=== PATIENT | female | born 1955 | race Caucasian/White ===

== ENCOUNTER → 2020-05-30 11:23 | Outpatient (BNVA) | payer MEDICARE, OTHER, SELFPAY | PROVIDERS: Visit Provider Nurse Practitioner Family | DX: Z20.828 Contact with and (suspected) exposure to other viral communicable diseases (principal) | CPT/HCPCS: 87635 ==

== ENCOUNTER → 2021-02-23 10:06 | Outpatient (BNVA) | payer MEDICARE, OTHER, SELFPAY | PROVIDERS: PCP Nurse Practitioner Family; Visit Provider Nurse Practitioner Family | DX: E11.9 Type 2 diabetes mellitus without complications (principal); J30.89 Other allergic rhinitis; B07.9 Viral wart, unspecified; Z12.31 Encounter for screening mammogram for malignant neoplasm of breast; Z23 Encounter for immunization; Z12.39 Encounter for other screening for malignant neoplasm of breast; Z12.11 Encounter for screening for malignant neoplasm of colon; Z76.89 Persons encountering health services in other specified circumstances | CPT/HCPCS: 80053; 80061; 83036; 85025 ==

== ENCOUNTER 2021-04-19 11:53 | Outpatient (CLI) | payer MEDICARE, OTHER, SELFPAY ==
--- NOTE | 2021-04-19 12:00 | MM_ITS ---
WS: [id number] SCREENING DIGITAL MAMMOGRAM WITH CAD HISTORY: Z12.39 - Encounter for other screening for malignant neoplasm... COMPARISON: 08/06/2016 and 05/17/2014 Bilateral CC and MLO views submitted. Computer aided detection analyzed. Breast composition: The breasts are heterogeneously dense, which may obscure small masses. Focal asym metry seen along the inferior RIGHT breast on the MLO projection. Tubular structure with a few calcif ications. This may be a vessel or duct. Not definitely seen on the CC projection. Otherwise scattered benign calcifications. MM/[place] [id number] IMPRESSION: BI-RADS: 0-Incomplete: Need additional imaging evaluation FOLLOW UP: Need Additional Imaging RIGHT breast: Spot compression views ( MLO). True ML. Ultrasound to follow if a bnormality persists.
== END 2021-04-19 11:54 | disposition home or self-care (01) ==
LOC: RADSHAW 11:59
PROVIDERS: PCP Nurse Practitioner Family; Visit Provider Nurse Practitioner Family
DX: Z12.31 Encounter for screening mammogram for malignant neoplasm of breast (principal)
CPT/HCPCS: 77067

== ENCOUNTER → 2021-04-24 09:55 | Outpatient (BNVA) | payer MEDICARE, OTHER, SELFPAY | PROVIDERS: PCP Nurse Practitioner Family; Visit Provider Surgery | DX: Z20.822 Contact with and (suspected) exposure to COVID-19 (principal); Z11.52 Encounter for screening for COVID-19 | CPT/HCPCS: 87635 ==

== ENCOUNTER 2021-04-27 06:17 | Day surgery (SDC) | payer MEDICARE, OTHER, SELFPAY ==
[2021-04-26 09:32] VITALS: BMI 34.3
[2021-04-27 06:29] VITALS: BP 119/64; PULSE 64; RESP 18; TEMP 36.1; O2SAT 98
[2021-04-27] MEDS: sodium chloride 0.9% 1,000 ML 30 ML IV (06:30)
--- NOTE | 2021-04-27 07:36 | ANES.PREANE2 ---
Pre-Anesthetic Assessment Pre-Anesthetic Assessment: Height/Weight: Height 1.63 m Weight 90.718 kg Temp Pulse Resp BP Pulse Ox 97 F L 64 18 119/64 98 04/27/21 06:29 04/27/21 06:29 04/27/21 06:29 04/27/21 06:29 04/27/21 06:29 Preop Diagnosis: diagnostic Proposed Procedure: Operation Date: 04/27/21 07:30 Proposed Procedures p Colonoscopy 06035 K63.5(Not Applicable) - Bobby Boyd MD Was Beta Wiliam taken within 24 hours: N/A Was Clonidine taken within 24 hours: N/A Last intake: Intake Last Liquid Date 04/26/21 Last Liquid Time 21:00 Last Solid Date 04/25/21 Last Solid Time 20:00 Social: Social History: No alcohol Comment: former smoker- many years ago Exam: Pre-Anes Outpt Exam: alert and oriented x 3 Airway: Submandibular: WNL Cervical ROM: WNL MP: 3 Dentition: Full History/ROS: No significant history except as noted Pulmonary: Pulmonary: Asthma (very seldom) CV/HEM: CV/HEM: None reported : : None reported Hepatic: Hepatic: None reported GI: GI: GERD Metabolic: Metabolic: DM and Morbid obesity Musc/skel: Musc/skel: None reported Neuropsych: Neuropsych: None reported Anesthetic Plan: ASA status: 3 Anesthesia: Anesthesia Evaluation Risk of > 500 ml blood loss (7ml/kg in children): No Meds/Allergies Current Medications: Current Medications Generic Name Dose Route Start Last Admin Trade Name Freq PRN Reason Stop Dose Admin Sodium Chloride 1,000 mls @ 30 ml s/hr 04/27/21 06:30 04/27/21 06:30 Sodium Chloride 0.9% IV 04/28/21 06:29 30 mls/hr .Q24H DINORAH Administration PFSH Anesthesia PFSH: Medical History Diabetes mellitus with hyperglycemia Environmental and seasonal allergies GERD (gastroesophageal reflux disease) Surgical History History of colonoscopy History of nasal surgery History of shoulder surgery left and right Hx of breast biopsy left and right Family History Mother Diabetes Grandmother Diabetes Social History Second hand smoke exposure: No Smoking risk assessment/counseling performed?: No Alcohol intake: former Desire information about alcohol rehabilitation?: No Counseling given: No Desire information about substance/drug rehabilitation?: No Counseling given: No Adopted: No Caregiver/support person: No Lives independently: Yes Household members: spouse Housing: House Marital status: Number of children: 2 Highest education level completed: Some College, No Degree service: Yes status: Discharged branch: [employer] History of recent travel: No Data Anesthesia Cardiac Studies: No Data to Display
--- NOTE | 2021-04-27 07:37 | P.HP_ITS ---
Same Day Surgery H&P Indication for Procedure/HPI DATE OF PROCEDURE: April 27, 2021 CHIEF COMPLAINT/INDICATIONFOR SURGICAL PROCEDURE: colonoscopy PREOP DIAGNOSIS: diagnostic PLANNED PROCEDRUE: Operation Date: 04/27/21 07:30 Proposed Procedures p Colonoscopy 84128 K63.5(Not Applicable) - Bobby Boyd MD Medications/Allergies* Home Medications Medication Instructions Recorded Confirmed Type cetirizine 10 mg tablet 10 mg PO DAILY PRN 02/23/21 04/27/21 History famotidine 20 mg tablet 20 mg PO BID 02/23/21 04/27/21 History valacyclovir 1 gram tablet 1,000 mg PO ONCE PRN tab 02/23/21 04/27/21 History Allergies/Adverse Reactions Allergy/AdvReac Type Severity Reaction Status Date / Time adhesive tape Allergy ALGY-Bliste Verified 04/27/21 06:36 r Current Medications: Generic Name Dose Route Start Last Admin Trade Name Freq PRN Reason Stop Dose Admin Sodium Chloride 1,000 mls @ 30 mls/hr 04/27/21 06:30 04/27/21 06:30 Sodium Chloride 0.9% IV 04/28/21 06:29 30 mls/hr .Q24H DINORAH Administration Pertinent History/Comorbid Conditions* Medical History (Updated 03/30/21 @ 09:28 by MARCELLUS Hicks) Diabetes mellitus with hyperglycemia Environmental and seasonal allergies GERD (gastroesophageal reflux disease) Surgical History (Updated 03/10/21 @ 14:11 by Bobby Boyd MD) History of colonoscopy History of nasal surgery History of shoulder surgery left and right Hx of breast biopsy left and right Family History (Updated 02/23/21 @ 09:48 by Afsaneh Cowan LPN) Diabetes Mother Grandmother Social History Second hand smoke exposure: No Smoking risk assessment/counseling performed?: No Alcohol intake: former Desire information about alcohol rehabilitation?: No Counseling given: No Desire information about substance/drug rehabilitation?: No Counseling given: No Adopted: No Caregiver/support person: No Lives independently: Yes Household members: spouse Housing: House Marital status: Number of children: 2 Highest education level completed: Some College, No Degree service: Yes status: Discharged branch: [employer] History of recent travel: No Pertinent Exam Findings alert, oriented x 3 and regular rate & rhythm Recommendations Surgery/Procedure today Coding Level of Care Code Acute Digital Sales Manager for Chg Ruslan
[2021-04-27 08:04] VITALS: BP 117/69; PULSE 74; RESP 18; TEMP 36.9; O2SAT 94
[2021-04-27 08:19] VITALS: BP 125/69; PULSE 71; RESP 18; TEMP 36.7; O2SAT 96
--- NOTE | 2021-04-27 13:13 | ANE.PACU2 ---
Inpatient post-anesthesia follow up: Airway intact: Yes Vital signs: Temperature 98.1 F Pulse Rate 71 Respiratory Rate 18 Blood Pressure 125/69 Pulse Oximetry 96 Oxygen Delivery Me thod Room Air Oxygen Flow Rate Fraction of Inspir ed Oxygen Hydration adequate: Yes Nausea and vomiting: Yes Pain level: 1 Mental status: Baseline
== END 2021-04-27 08:30 | disposition home or self-care (01) ==
PROVIDERS: PCP Nurse Practitioner Family; Visit Provider Surgery
PROC: 0DJD8ZZ Inspection of Lower Intestinal Tract, Via Natural or Artificial Opening Endoscopic (ICD-10-PCS; CPT 45378; principal; 2021-04-27 07:30)
DX: K63.5 Polyp of colon (principal); E11.65 Type 2 diabetes mellitus with hyperglycemia; K21.9 Gastro-esophageal reflux disease without esophagitis; Z83.3 Family history of diabetes mellitus; K57.30 Diverticulosis of large intestine without perforation or abscess without bleeding; K64.8 Other hemorrhoids; J45.909 Unspecified asthma, uncomplicated; E66.01 Morbid (severe) obesity due to excess calories; Z68.34 Body mass index [BMI] 34.0-34.9, adult
CPT/HCPCS: 45378; 96360; 96361; J2704; J7030

== ENCOUNTER → 2022-03-20 11:06 | Outpatient (BNVA) | payer MEDICARE, OTHER, SELFPAY | PROVIDERS: PCP Nurse Practitioner Family; Visit Provider Nurse Practitioner | DX: J30.89 Other allergic rhinitis (principal); K21.9 Gastro-esophageal reflux disease without esophagitis; E11.65 Type 2 diabetes mellitus with hyperglycemia; Z23 Encounter for immunization; Z12.39 Encounter for other screening for malignant neoplasm of breast; R41.3 Other amnesia | CPT/HCPCS: 80053; 80061; 82043; 82607; 83036; 84443 ==

== ENCOUNTER → 2022-09-03 08:11 | Outpatient (BNVA) | payer MEDICARE, OTHER, SELFPAY | PROVIDERS: PCP Nurse Practitioner; Visit Provider Nurse Practitioner | DX: E11.65 Type 2 diabetes mellitus with hyperglycemia (principal); E78.2 Mixed hyperlipidemia | CPT/HCPCS: 80053; 80061; 82607; 83036; 84443; 85025 ==

== ENCOUNTER → 2023-04-11 09:01 | Outpatient (BNVA) | payer MEDICARE, OTHER, SELFPAY | PROVIDERS: PCP Nurse Practitioner; Visit Provider Nurse Practitioner | DX: E11.65 Type 2 diabetes mellitus with hyperglycemia (principal); E78.2 Mixed hyperlipidemia; Z79.899 Other long term (current) drug therapy | CPT/HCPCS: 80053; 80061; 82607; 83036; 85025 ==

== ENCOUNTER 2023-04-19 13:11 | Emergency (ER) | payer MEDICARE, OTHER, SELFPAY ==
[2023-04-19 14:00] VITALS: BP 113/73; PULSE 64; RESP 18; TEMP 36.7; O2SAT 98; BMI 21.4
[2023-04-19 16:02] LABS: Basophils # 0.1 10^3/uL (0.0-0.1); Basophils % 0.8 %; Eosinophils # 0.1 10^3/uL (0.0-0.8); Eosinophils % 1.3 %; Hematocrit 43.4 % (36-47); Lymphocytes # 2.7 10^3/uL (0.8-4.8); Lymphocytes % 37.3 %; Mean Corpuscular HGB Conc 32.5 g/dL (30-55); Mean Corpuscular Hemoglobin 30.8 pg (27-33); Mean Corpuscular Volume 94.8 fl (85-98); Mean Platelet Volume 9.1 fL (7.4-10.4); Monocytes # 0.5 10^3/uL (0.2-0.9); Monocytes % 6.3 %; Neutrophils # 3.87 10^3/uL (1.8-7.7); Neutrophils % 54.2 %; Nucleated Red Blood Cells % 0 %; Platelet Count 283 10^3/cmm (157-399); Red Blood Count 4.58 10^6/uL (3.85-5.65); Red Cell Distribution Width 12.9 % (12.1-15.1); White Blood Count 7.14 10^3/uL (3.29-11.43)
[2023-04-19 16:24] LABS: Albumin Level 4.4 g/dL (3.5-5.2); Chloride 106 mmol/L (98-107); Sodium 144 mmol/L (136-145)
--- NOTE | 2023-04-19 16:53 | ED_ITS ---
HPI - Back Pain/Injury General: Chief Complaint: Back Pain/Injury Stated Complaint: lower back pain, abd pain Time Seen by Provider: 04/19/23 16:53 History of Present Illness: 67-year-old female presents emergency department with complaints of left lower quadrant and left flank pain. She states it feels exactly like when she had a diverticulitis flareup and is concerned that she may be having another diverticulitis flareup. She states that on Saturday the pain started to become an 8 out of 10 and she decided to go ahead and take her 's Keflex to get her through Thanksgiving until she can come to the ER today. She denies nausea vomiting fevers chills or night sweats. She denies increased urinary frequency or dysuria. She denies hematic emesis or hematochezia. She states she does have an excessive amount of gas on a regular basis and takes Gas-X for that as well as MiraLAX for her chronic constipation. She denies fevers chills or night sweats. She states her pain at present is much better. Associated symptoms: Reports abdominal pain Review of Systems General: Reports: 10 or more systems reviewed and unremarkable except in HPI and below GI: Reports: abdominal pain; Denies: hematochezia or melena PFSH ED PFSH: Medical History Asthma Colon polyps Diabetes mellitus with hyperglycemia Diverticula of colon Environmental and seasonal allergies GERD (gastroesophageal reflux disease) Surgical History History of colonoscopy (04/27/21) diverticulosis History of nasal surgery History of shoulder surgery left and right Hx of breast biopsy left and right Family History Mother Diabetes Grandmother Diabetes Social History Smoking and tobacco/nicotine status: never used tobacco/nicotine Second hand smoke exposure: No Alcohol intake: former Adopted: No Caregiver/support person: No Lives independently: Yes Household members: spouse Housing: House Marital status: Number of children: 2 Highest education level completed: Some College, No Degree service: Yes status: Discharged branch: [employer] Physical Exam Narrative: EXAM NARRATIVE: Constitutional: the patient appears well nourished and with normal development. Vital signs reviewed as documented. No acute distress, HENMT: Normocephalic, atraumatic. Extermal ears with normal appearance without drainage. Nose without drainage, normal appearance. Mucus membranes moist. Neck is supple, No jugular venous distension, trachea is midline, no appreciable carotid bruits. No lymphadenopathy. No meningeal signs. Flexion, extension and lateral rotation is without pain. Eyes: Pupils are equal, round, reactive to light and accommodation. No scleral icterus. Extra-ocular movement are intact. Thorax is symmetrical and with equal rise and fall with respirations. Resp: Lungs are clear to auscultation. No wheezes, rales, crackles or ronchi at present. Cardio: Regular rate and rhythm. Positive S1, S2. No appreciable murmurs, rubs or gallops. GI: Abdominal exam reveals normal bowel sounds to all quadrants. No organomegaly. No obvious palpable masses noted. No hepatomegally appreciated. Soft, nontender to palpation. Extremity: Extremities are non-edematous and both femoral and pedal pulses are 2+ and equal bilaterally. Moves all extremities well, sensation in all extremities. Neuro: Alert and oriented x4, person, place, time and situation. Cranial nerves II through XII are grossly intact, there is no focal neurological deficits that I can appreciate at present. Motor strength in the upper and lower extremities are equal and bilateral 5/5. Psych: Cooperative, calm, normal thought process, appropriate judgment. Skin: No lesions, rashes. No gross abnormalities noted. Back: Symmetrical, no obvious deformity, No CVA tenderness Course Vital Signs: Vital signs: Vital Signs Temperature 98.1 F 04/19/23 14:00 Pulse Rate 64 04/19/23 14:00 Respiratory Rate 18 04/19/23 14:00 Blood Pressure 113/73 04/19/23 14:00 Pulse Oximetry 98 04/19/23 14:00 Oxygen Delivery Me thod Room Air 04/19/23 14:00 MDM - Back Pain/Injury Medical Decision Making Physical exam completed and documented, I will obtain a urinalysis as well as a CBC and CMP and a CT scan of the abdomen pelvis to rule out diverticulitis, colitis, enteritis, constipation versus excess flatus. Medical Records I reviewed the patient's medical records. Labs I reviewed the patient's lab results. 04/19/23 15:49 04/19/23 15:49 Radiology Impressions Abdomen/Pelvis CT 04/19/23 16:54 IMPRESSION: No acute findings in the abdomen or pelvis. Laboratory Results WBC 7.14 10^3/uL (3.29-11.43) 04/19/23 15:49 RBC 4.58 10^6/uL (3.85-5.65) 04/19/23 15:49 Hgb 14.10 g/dL (11.27-16.99) 04/19/23 15:49 Hct 43.4 % (36-47) 04/19/23 15:49 MCV 94.8 fl (85-98) 04/19/23 15:49 MCH 30.8 pg (27-33) 04/19/23 15:49 MCHC 32.5 g/dL (30-55) 04/19/23 15:49 RDW 12.9 % (12.1-15.1) 04/19/23 15:49 Plt Count 283 10^3/cmm (157-399) 04/19/23 15:49 MPV 9.1 fL (7.4-10.4) 04/19/23 15:49 Neut % (Auto) 54.2 % 04/19/23 15:49 Lymph % (Auto) 37.3 % 04/19/23 15:49 [place] % (Auto) 6.3 % 04/19/23 15:49 Eos % (Auto) 1.3 % 04/19/23 15:49 Baso % (Auto) 0.8 % 04/19/23 15:49 Neut # (Auto) 3.87 10^3/uL (1.8-7.7) 04/19/23 15:49 Lymph # (Auto) 2.7 10^3/uL (0.8-4.8) 04/19/23 15:49 [place] # (Auto) 0.5 10^3/uL (0.2-0.9) 04/19/23 15:49 Eos # (Auto) 0.1 10^3/uL (0.0-0.8) 04/19/23 15:49 Baso # (Auto) 0.1 10^3/uL (0.0-0.1) 04/19/23 15:49 Nucleated RBC % (auto) 0 % 04/19/23 15:49 Nucleated RBCs # 0.0 /100WBC 04/19/23 15:49 Sodium 144 mmol/L (136-145) 04/19/23 15:49 Potassium 5.0 mmol/L (3.5-5.1) 04/19/23 15:49 Chloride 106 mmol/L (98-107) 04/19/23 15:49 Carbon Dioxide 25 mmol/L (22-29) 04/19/23 15:49 Anion Gap 18.0 (5-19) 04/19/23 15:49 BUN 22 mg/dL (8-23) 04/19/23 15:49 Creatinine 0.6 mg/dL (0.5-0.9) 04/19/23 15:49 GFR Calculation 99.4 mL/min (90-130) 04/19/23 15:49 Glucose 86 mg/dL (65-115) 04/19/23 15:49 Calculated Osmolality 301 mOsm/kg (285-295) H 04/19/23 15:49 Calcium 9.7 mg/dL (8.5-10.5) 04/19/23 15:49 Total Bilirubin 0.3 mg/dL (0.15-1.2) 04/19/23 15:49 AST 23 U/L (0-32) 04/19/23 15:49 ALT 30 U/L (0-33) 04/19/23 15:49 Alkaline Phosphatase 65 U/L (35-105) 04/19/23 15:49 Total Protein 7.6 g/dL (6.6-8.7) 04/19/23 15:49 Albumin 4.4 g/dL (3.5-5.2) 04/19/23 15:49 Globulin 3.2 g/dL (1.3-4.6) 04/19/23 15:49 Lipase 74 U/L (13-60) H 04/19/23 15:49 Urine Color Yellow (Yellow) 04/19/23 17:46 Urine Appearance Clear (CLEAR) 04/19/23 17:46 Urine pH 5 (5-7) 04/19/23 17:46 Ur Specific [place] 1.007 (1.005-1.030) 04/19/23 17:46 Urine Protein Neg (Negative) 04/19/23 17:46 Urine Glucose (UA) Norm (Normal) 04/19/23 17:46 Urine Ketones Negative (Negative) 04/19/23 17:46 Urine Blood Neg (Negative) 04/19/23 17:46 Urine Nitrate Negative (Negative) 04/19/23 17:46 Urine Bilirubin Neg (Negative) 04/19/23 17:46 Urine Urobilinogen Neg mg/dL (Negative) 04/19/23 17:46 Ur Leukocyte Esterase Negative (Negative) 04/19/23 17:46 All radiology interpretation(s) finalized by discharge Discharge Plan Discharge Patient Disposition: Home Clinical Impression: Abdominal pain, Constipation Condition: Stable Prescriptions: New sennosides-docusate sodium [Senna-S] 8.6-50 mg tablet 2 tab-cap PO BID Qty: 60 0RF No Action cetirizine [Zyrtec] 10 mg tablet 10 mg PO DAILY PRN (Reason: Allergy Symptoms) omega-3 fatty acids [Fish Oil Concentrate] 1,000 mg capsule 1,000 mg PO BID Qty: 90 2RF Probiotic Digestive Care 20 billion cell capsule See Rx Instructions PO .2 times day Qty: 60 0RF Rx Instructions: 20 billion cell PO .2 times day; albuterol sulfate [Ventolin HFA] 90 mcg/actuation HFA aerosol inhaler 2 puff inhalation Q6H PRN (Reason: shortness of breath or wheezing) Qty: 8.5 1RF famotidine 20 mg tablet 20 mg PO BID Qty: 180 1RF Flovent Diskus 100 mcg/actuation blister with device 1 inh inhalation Q12H Qty: 180 1RF montelukast [Singulair] 10 mg tablet 10 mg PO DAILY Qty: 90 1RF Mounjaro 2.5 mg/0.5 mL pen injector 2.5 mg SUBCUT .weekly Qty: 6 1RF (DME) FreeStyle Lite Strips Strip See Rx Instructions .Route Qty: 100 5RF Rx Instructions: one day (DME) blood-glucose meter [FreeStyle Lite Meter] Kit See Rx Instructions .Route Qty: 1 0RF Rx Instructions: As directed valacyclovir 500 mg tablet 500 mg PO DAILY Qty: 90 0RF Discharge Orders: Discharge ED (Routine); Ordered 04/19/23 Ordered By: Franco Barnes Referrals: Marleen Rocha, BAKERY ASSOCIATE-C [Primary Care Provider] - Discharge Diet: Advance as tolerated Discharge Activity: Resume usual activity Patient Instructions: Abdominal Pain (ED), Opioid Safety, Pain Management Activity Restrictions/Additional Instructions: Activity Restrictions/Additional Instructions: Thank you for choosing [facility] for your healthcare needs today. Please realize that you were seen in the Emergency Department and that we are providing you with an emergency medical screening exam and this may not be complete and all inclusive of all the testing and or medical work-up that you may need to determine your ailment or severity of your illness. It is very important that you follow-up as instructed with your Primary care provider or Specialist for additional evaluation and to discuss your medical treatment plan. You may return to the Emergency Department should you have concerns or if your condition changes or worsens in any way. Coding Level of Care Code ED Risk Compliance Manager for Nancy Mercer
[2023-04-19 16:54] LABS: Alanine Aminotransferase 30 U/L (0-33); Aspartate Amino Transferase 23 U/L (0-32); Blood Urea Nitrogen 22 mg/dL (8-23); Calcium 9.7 mg/dL (8.5-10.5); Carbon Dioxide 25 mmol/L (22-29); Globulin 3.2 g/dL (1.3-4.6); Glomerular Filtration Rate 99.4 mL/min (90-130); Glucose 86 mg/dL (65-115); Lipase 74 U/L (13-60); Osmolality Calculated 301 mOsm/kg (285-295); Total Bilirubin 0.3 mg/dL (0.15-1.2); Total Protein 7.6 g/dL (6.6-8.7)
--- NOTE | 2023-04-19 16:54 | CTR_ITS ---
PROCEDURE INFORMATION: Exam: CT Abdomen And Pelvis With Contrast Exam date and time: 04/19/2023 5:05 PM Age: 67 years old Clinical indication: Abdominal pain; Acute; Additional info: Llq abd pain TECHNIQUE: Imaging protocol: Computed tomography of the abdomen and pelvis with contrast. Radiation optimization: All CT scans at this facility use at least one of these dose optimization techniques: automated exposure control; mA and/or kV adjustment per patient size (includes targeted exams where dose is matched to clinical indication); or iterative reconstruction. Contrast material: OMNI 350; Contrast volume: 100 ml; Contrast route: INTRAVENOUS (IV); REPORTING DATA: Count of CT and Cardiac NM exams in prior 12 months: This patient has received 0 known CTs and 0 known cardiac nuclear medicine studies in the 12 months prior to the current study. COMPARISON: CT abdomen pelvis w con* [id number] 11/06/2018 11:43 PM RADIATION DOSE METRICS: Total DLP (mGy-cm): 390.07 FINDINGS: Lungs: Lung bases are clear. Liver: There is no focal abnormality within the liver. Gallbladder and bile ducts: The gallbladder is normal. There is no common bile duct dilation. Pancreas: The pancreas is normal. Spleen: The spleen is normal. Adrenal glands: The adrenal glands are normal. Kidneys and ureters: The kidneys are normal. There is no evidence of hydronephrosis. There is no evidence of renal or ureteral calcifications. Stomach and bowel: Mild diverticulosis is present in the distal colon. There is no evidence of colitis/diverticulitis. There is no evidence of intestinal obstruction. There is a large amount of feces throughout the colon which may represent constipation. Appendix: A normal appendix is identified. Intraperitoneal space: There is no evidence of free intraperitoneal fluid. Vasculature: The aorta demonstrates mild atherosclerotic calcification. Lymph nodes: No aneurysmThere is no evidence of lymphadenopathy. Urinary bladder: Urinary bladder is moderately distended. Reproductive: Unremarkable as visualized. Bones/joints: There are degenerative changes in the lower lumbar spine with severe narrowing of L5-S1 not significantly changed. Soft tissues: There is a small benign-appearing sebaceous cyst in the subcutaneous soft tissues in the right side back. CT/CT abdomen pelvis w con* [id number] IMPRESSION: No acute findings in the abdomen or pelvis.
[2023-04-19] MEDS: iohexol 350 mg/mL 500 mL Btl (per mL) IV (17:12)
[2023-04-19 17:14] LABS: Alkaline Phosphatase 65 U/L (35-105)
[2023-04-19 18:13] LABS: Add Urine Microscopic? NO; Charge for UA Resulting for Rev
[2023-04-19 18:18] LABS: Bilirubin Urine Neg (Negative); Blood Urine Neg (Negative); Glucose Urine UA Norm (Normal); Ketones Urine Negative (Negative); Leukocyte Esterase Urine Negative (Negative); Nitrate Urine Negative (Negative); Protein Urine Neg (Negative); Specific Gravity, Urine 1.007 (1.005-1.030); Urine Appearance Clear (CLEAR); Urine Color Yellow (Yellow); Urobilinogen Urine Neg (Negative); pH Urine 5 (5-7)
== END 2023-04-19 18:44 | disposition home or self-care (01) ==
PROVIDERS: Physician Assistant; Emergency Provider Internal Medicine; PCP Nurse Practitioner
DX: K59.00 Constipation, unspecified (principal); E11.9 Type 2 diabetes mellitus without complications
CPT/HCPCS: 36415; 74177; 80053; 81003; 83690; 85025; 99285; Q9967

== ENCOUNTER 2023-05-07 14:23 | Outpatient (CLI) | payer MEDICARE, OTHER, SELFPAY ==
--- NOTE | 2023-05-07 14:30 | MM_ITS ---
WS: [id number] BILATERAL 3D TOMOSYNTHESIS DIGITAL SCREENING MAMMOGRAPHY WITH CAD CLINICAL INFORMATION: Z12.31 - Encounter for screening mammogram for malignant ... HISTORY: Screening mammogram. No current complaints. COMPARISON: 2020 TECHNIQUE: Bilateral CC and MLO views. FINDINGS: The breasts are composed of heterogeneous fibroglandular density tissue, which can limit the detectio n of small underlying mass lesions. No suspicious mass, asymmetry, calcifications, or architectural d istortion. No evidence of malignancy. Incidental punctate and lucent centered calcifications. IMPRESSION: MM/[place] [id number] BI-RADS: 2-Benign FOLLOW UP: 1 Year Follow-up Recommend return to annual screening mammography.
== END 2023-05-07 14:24 | disposition home or self-care (01) ==
LOC: MOBLMAM 14:26
PROVIDERS: PCP Nurse Practitioner; Visit Provider Nurse Practitioner
DX: Z12.31 Encounter for screening mammogram for malignant neoplasm of breast (principal)
CPT/HCPCS: 77063; 77067

== ENCOUNTER → 2023-05-08 10:11 | Outpatient (BNVA) | payer MEDICARE, OTHER, SELFPAY | PROVIDERS: PCP Nurse Practitioner; Visit Provider Nurse Practitioner | DX: M47.892 Other spondylosis, cervical region (principal); M47.896 Other spondylosis, lumbar region; M47.894 Other spondylosis, thoracic region; M54.6 Pain in thoracic spine; M54.50 Low back pain, unspecified; M54.2 Cervicalgia | CPT/HCPCS: 72040; 72072; 72100 ==

== ENCOUNTER → 2023-09-03 10:20 | Outpatient (BNVA) | payer MEDICARE, OTHER, SELFPAY | PROVIDERS: PCP Nurse Practitioner; Visit Provider Nurse Practitioner | DX: K59.01 Slow transit constipation (principal); J45.909 Unspecified asthma, uncomplicated; K21.9 Gastro-esophageal reflux disease without esophagitis; B00.9 Herpesviral infection, unspecified; E11.9 Type 2 diabetes mellitus without complications; E11.65 Type 2 diabetes mellitus with hyperglycemia | CPT/HCPCS: 74018; 80053; 80061; 81000; 83036; 85025 ==

== ENCOUNTER → 2023-09-10 09:25 | Outpatient (BNVA) | payer MEDICARE, OTHER, SELFPAY | PROVIDERS: PCP Nurse Practitioner; Visit Provider Nurse Practitioner Family | DX: R10.9 Unspecified abdominal pain (principal) | CPT/HCPCS: 82150; 83690 ==

== ENCOUNTER → 2023-11-04 10:18 | Outpatient (BNVA) | payer MEDICARE, OTHER, SELFPAY | PROVIDERS: PCP Nurse Practitioner; Visit Provider Nurse Practitioner Family | DX: E11.65 Type 2 diabetes mellitus with hyperglycemia (principal); Z91.89 Other specified personal risk factors, not elsewhere classified; K59.01 Slow transit constipation | CPT/HCPCS: 83036; 86618; 86666; 86757 ==

== ENCOUNTER → 2023-11-13 16:04 | Outpatient (BNVA) | payer MEDICARE, OTHER, SELFPAY | PROVIDERS: PCP Nurse Practitioner; Visit Provider Nurse Practitioner | DX: R10.32 Left lower quadrant pain (principal); R10.12 Left upper quadrant pain; Z79.899 Other long term (current) drug therapy | CPT/HCPCS: 80053; 81000; 82150; 83690; 85025 ==

== ENCOUNTER 2023-11-21 10:15 | Outpatient (CLI) | payer MEDICARE, OTHER, SELFPAY ==
--- NOTE | 2023-11-21 10:30 | CT_ITS ---
WS: [id number] CT ABDOMEN PELVIS TECHNIQUE: Contrast-enhanced CT of the abdomen and pelvis with coronal and sagittal reformatted image s. CLINICAL INFORMATION: R10.32 - Left lower quadrant pain COMPARISON: CT abdomen pelvis 04/19/2023 DLP: 294.[address] scans at [facility] use at least one of these dose optimization techniques: automated e xposure control; mA and/or kV adjustment per patient size (includes targeted exams where dose is matc hed to clinical indication); or iterative reconstruction. FINDINGS: Lung bases are well aerated. Diffuse fatty infiltration of the liver. Normal portal vein and splenic vein. Normal spleen. Normal GE junction. Air-fluid level in the distended stomach. Normal pancreatic parenchymal enhancement. Normal portal vein and splenic vein. Adrenal glands are no rmal. Normal renal parenchymal enhancement. No hydronephrosis in either kidney. Normal caliber abdominal aorta. Mild aortic calcification. Sigmoid diverticulosis with diffuse thickening of the sigmoid colon. Diffuse chisholm colonic constipation with fecal retention. No evidence of acute sigmoid diverticulitis. No evidence of high-grade small o r large bowel obstruction. Disc narrowing worse at L5-S1. CT/CT abdomen pelvis w con* [id number] IMPRESSION: 1. Moderate pancolonic constipation. 2. No evidence of small or large bowel obstruction. 3. Sigmoid diverticulosis. No evidence of acute diverticulitis. 4. Diffuse fatty infiltration of the liver. 5. Distended stomach with air-fluid level. 6. No other acute findings.
[2023-11-21] MEDS: iohexol 350 mg/mL 500 mL Btl (per mL) PO (11:15)
[2023-11-21] MEDS: iohexol 350 mg/mL 500 mL Btl (per mL) IV (11:15)
== END 2023-11-21 10:16 | disposition home or self-care (01) ==
LOC: RAD 10:15
PROVIDERS: PCP Nurse Practitioner; Visit Provider Nurse Practitioner
DX: R10.32 Left lower quadrant pain (principal); R10.12 Left upper quadrant pain; K59.00 Constipation, unspecified; K57.30 Diverticulosis of large intestine without perforation or abscess without bleeding; K76.0 Fatty (change of) liver, not elsewhere classified
CPT/HCPCS: 74177; Q9967

== ENCOUNTER → 2024-04-01 10:02 | Outpatient (BNVA) | payer MEDICARE, OTHER, SELFPAY | PROVIDERS: PCP Nurse Practitioner; Visit Provider Nurse Practitioner | DX: E11.9 Type 2 diabetes mellitus without complications (principal) | CPT/HCPCS: 80053; 80061; 82607; 83036 ==

== ENCOUNTER 2024-05-12 14:36 | Outpatient (CLI) | payer MEDICARE, OTHER, SELFPAY ==
--- NOTE | 2024-05-12 14:40 | MM_ITS ---
WS: [id number] BILATERAL 3D TOMOSYNTHESIS DIGITAL SCREENING MAMMOGRAM WITH CAD CLINICAL INFORMATION: Z12.31 - Encounter for screening mammogram for malignant ... HISTORY: Screening mammogram. No current complaints. COMPARISON: 2022 TECHNIQUE: Bilateral CC and MLO. FINDINGS: The breast are composed of extremely dense tissue, which can limit the detection of small underlying mass lesions. No suspicious focal mass, asymmetry, calcifications, or architectural distortion. No ev idence of malignancy. Incidental punctate and lucent centered calcifications. MM/MM [facility] tomosynthesis [id number] IMPRESSION: DENSITY: The breasts are heterogeneously dense, which may obscure small masses. BI-RADS: 2 - Benign FOLLOW UP: 1 Year Follow-up Recommend return to annual screening mammography.
== END 2024-05-12 14:37 | disposition home or self-care (01) ==
LOC: MOBLMAM 14:37
PROVIDERS: PCP Nurse Practitioner; Visit Provider Nurse Practitioner
DX: Z12.31 Encounter for screening mammogram for malignant neoplasm of breast (principal); R92.333 Mammographic heterogeneous density, bilateral breasts; R92.1 Mammographic calcification found on diagnostic imaging of breast
CPT/HCPCS: 77063; 77067

== ENCOUNTER → 2024-09-21 14:25 | Outpatient (BNVA) | payer MEDICARE, OTHER, SELFPAY | PROVIDERS: PCP Nurse Practitioner; Visit Provider Nurse Practitioner | DX: E11.65 Type 2 diabetes mellitus with hyperglycemia (principal); E78.2 Mixed hyperlipidemia | CPT/HCPCS: 80053; 80061; 83036; 84443 ==

== ENCOUNTER → 2024-12-17 10:44 | Outpatient (BNVA) | payer MEDICARE, OTHER, SELFPAY | PROVIDERS: PCP Nurse Practitioner; Visit Provider Nurse Practitioner | DX: E55.9 Vitamin D deficiency, unspecified (principal); E78.2 Mixed hyperlipidemia | CPT/HCPCS: 80053; 80061; 82306 ==

== ENCOUNTER 2025-03-07 10:31 | Emergency (ER) | payer MEDICARE, OTHER, SELFPAY ==
[2025-03-07 10:56] VITALS: BP 120/75; PULSE 100; RESP 18; TEMP 36.7; O2SAT 100; BMI 24.7
[2025-03-07 11:20] LABS: Hematocrit 42.2 % (36-47); Hemoglobin 14.10 g/dL (11.27-16.99); Mean Corpuscular HGB Conc 33.4 g/dL (30-55); Mean Corpuscular Hemoglobin 29.0 pg (27-33); Mean Corpuscular Volume 86.8 fl (85-98); Nucleated Red Blood Cells % 0 %; Platelet Count 252 10^3/cmm (157-399); Red Blood Count 4.86 10^6/uL (3.85-5.65); White Blood Count 6.75 10^3/uL (3.29-11.43)
--- NOTE | 2025-03-07 11:26 | USR_ITS ---
PROCEDURE INFORMATION: Exam: US Abdomen, Limited; Right Upper Quadrant Exam date and time: 03/07/2025 12:10 PM Age: 69 years old Clinical indication: Abdominal pain; Localized; Right upper quadrant (ruq); Additional info: Ruq abd pain TECHNIQUE: Imaging protocol: Real time ultrasound of the abdomen with image documentation. Limited exam focused on the right upper quadrant. COMPARISON: CT abdomen pelvis w con* [id number] 11/21/2023 11:07 AM FINDINGS: Liver: Unremarkable. Gallbladder: No gallstones. No gallbladder wall thickening or pericholecystic fluid. Negative sonographic Blancas's sign, as per the performing leadership program internship. Biliary ducts: No stones. No ductal dilatation. Pancreas: Unremarkable as visualized. Right kidney: No mass. No definite stones. No hydronephrosis. US/US gall bladder [id number] IMPRESSION: No acute sonographic findings.
--- NOTE | 2025-03-07 11:27 | W.ED.ABDPA2 ---
HPI - Abdominal Pain General: Chief Complaint: Abdominal Pain Stated Complaint: Stomach pain Time Seen by Provider: 03/07/25 10:50 History of Present Illness: 69-year-old female presents emergency room complaining of right upper quadrant abdominal pain that began overnight. It is better now. She had quite a bit of nausea no vomiting no diarrhea. She is on Mounjaro no previous abdominal surgeries denies fever. No hematuria no dysuria urgency or frequency Associated Symptoms: Reports nausea; Denies chills, diarrhea, dysuria, fever(s) and vomiting Related Data Home Medications ?Medication ?Instructions ?Recorded ?Confirmed magnesium L-threonate 48 mg mg PO 09/07/24 12/17/24 magnesium (667 mg) capsule magnesium gluconate 27 mg mg PO Restless leg 09/07/24 12/17/24 magnesium (500 mg) tablet multivitamin with minerals-folic 1 tab PO DAILY 09/07/24 12/17/24 acid 120 mcg chewable tablet (Vitafusion Women's Multi) polydextrose 2.5 gram chewable g PO 09/07/24 12/17/24 tablet (FiberWell) polyethylene glycol 3350 17 g PO Constiputation 09/07/24 12/17/24 gram/dose oral powder (Miralax) simethicone 125 mg capsule (Gas 125 mg PO BID Gas 09/07/24 12/17/24 Relief Extra Strength) Previous Rx's ?Medication ?Instructions ?Recorded omega-3 fatty acids 1,000 mg 1,000 mg PO BID #90 caps 04/17/21 capsule (Fish Oil Concentrate) blood-glucose meter (FreeStyle #1 ea 04/03/22 Lite Meter kit) Lactobacillus rhamnosus GG 20 See Rx Instructions PO .2 times 04/25/22 billion cell capsule (Probiotic day #60 caps Digestive Care) blood sugar diagnostic (FreeStyle #100 ea 04/15/23 Lite Strips) albuterol sulfate 90 mcg/actuation 2 puff inhalation Q6H PRN 04/01/24 aerosol inhaler (Ventolin HFA) shortness of breath or wheezing #8.5 grams fluticasone propionate 100 1 inh inhalation Q12H #180 ea 04/01/24 mcg/actuation blister powder for inhalation amitriptyline 10 mg tablet 20 mg (2 x 10 mg) PO BID #360 tabs 12/17/24 cyclobenzaprine 5 mg tablet 5 mg PO .at bedtime muscle spasm 12/17/24 #90 tabs duloxetine 20 mg capsule,delayed 20 mg PO BID #60 caps 12/17/24 release famotidine 20 mg tablet 20 mg PO BID #180 tabs 12/17/24 rosuvastatin 10 mg tablet (Crestor) 10 mg PO DAILY #90 tabs 12/17/24 valacyclovir 500 mg tablet 500 mg PO DAILY Cold Sores #90 tabs 12/17/24 cephalexin 500 mg capsule 500 mg PO TID 7 days #21 caps 03/07/25 Allergies Allergy/AdvReac Type Severity Reaction Status Date / Time adhesive tape Allergy ALGY-Bliste Verified 12/17/24 09:51 r Review of Systems Const: Denies: fever(s) or chills Card: Denies: chest pain Resp: Denies: dyspnea GI: Reports: abdominal pain and nausea; Denies: vomiting or diarrhea : Denies: dysuria, urinary frequency or urinary urgency Musc: Denies: neck pain or back pain Skin/Breast: Denies: rash PFSH ED PFSH: Medical History Degeneration of intervertebral disc of lumbar region with discogenic back pain and lower extremity pain Irritable bowel syndrome with both constipation and diarrhea Asthma Diverticula of colon Colon polyps GERD (gastroesophageal reflux disease) Environmental and seasonal allergies Surgical History History of esophagogastroduodenoscopy (EGD) 12/18/23 [place], [place] History of colonoscopy (04/27/21) diverticulosis 12/18/23 in [place], [place] Hx of breast biopsy left and right History of shoulder surgery left and right History of nasal surgery Family History Mother Diabetes Grandmother Diabetes Social History Smoking and tobacco/nicotine status: never used tobacco/nicotine Second hand smoke exposure: No Alcohol intake: former Substance/Drug Use: unknown Adopted: No Caregiver/support person: No Lives independently: Yes Household members: spouse Housing: House Marital status: Number of children: 2 Highest education level completed: Some College, No Degree service: Yes status: Discharged branch: [employer] Do you think of yourself as: Straight/Heterosexual Current gender identity: Female Physical Exam Const: COMMON NORMALS: no acute distress GENERAL APPEARANCE: cooperative and comfortable ORIENTATION/CONSCIOUSNESS: Yes awake, Yes oriented to person, Yes oriented to place and Yes oriented to time HENMT: COMMON NORMALS: normocephalic, atraumatic and hearing grossly normal bilaterally HEAD & SCALP: normocephalic and atraumatic Resp: COMMON NORMALS: normal respiratory effort, No retractions, No use of accessory muscles and clear to auscultation bilaterally AUSCULTATION: clear to auscultation bilaterally Cardio: COMMON NORMALS: regular rate, regular rhythm and No murmurs present (Cardio) RATE: regular rate RHYTHM: regular rhythm GI: COMMON NORMALS: No hepatosplenomegaly present AUSCULTATION: Yes normoactive bowel sounds PALPATION: Yes Tenderness to palpation present (GI) Details: RUQ, No Guarding due to palpation present (GI) and Yes No hepatosplenomegaly present Extremity: COMMON NORMALS: normal to inspection, capillary refill normal, no clubbing, cyanosis or edema, no calf tenderness and no pedal edema Neuro: SENSORIUM/ORIENTATION: Yes oriented to person, Yes oriented to place and Yes oriented to time Skin: COMMON NORMALS: no rashes or lesions noted GENERAL SKIN EXAM: no rashes or lesions noted Course Vital Signs: Vital signs: Vital Signs Temperature 98.1 F 03/07/25 10:56 Pulse Rate 100 03/07/25 10:56 Respiratory Rate 18 03/07/25 10:56 Blood Pressure 120/75 03/07/25 10:56 Pulse Oximetry 100 03/07/25 10:56 Oxygen Delivery Me thod Room Air 03/07/25 10:56 MDM - Abdominal Pain Medical Decision Making Laboratory test unremarkable. No elevation of liver enzymes. UA shows cystitis no leukocytosis. Reviewed ultrasound with tech who initially did the ultrasound no cholelithiasis no dilation of common bile duct and no thickening of the gallbladder wall final overread by radiology pending. Reviewed with patient will discharge home have her started on Keflex 500 3 times daily for 7 days. Reviewed completed ultrasound report from radiology no acute findings noted Medical Records I reviewed the patient's medical records. Lab Data I reviewed the patient's lab results. 03/07/25 11:16 03/07/25 11:16 Labs/Radiology: Radiology Impressions Gallbladder Ultrasound 03/07/25 11:26 IMPRESSION: No acute sonographic findings. Laboratory Results WBC 6.75 10^3/uL (3.29-11.43) 03/07/25 11:16 RBC 4.86 10^6/uL (3.85-5.65) 03/07/25 11:16 Hgb 14.10 g/dL (11.27-16.99) 03/07/25 11:16 Hct 42.2 % (36-47) 03/07/25 11:16 MCV 86.8 fl (85-98) 03/07/25 11:16 MCH 29.0 pg (27-33) 03/07/25 11:16 MCHC 33.4 g/dL (30-55) 03/07/25 11:16 RDW 12.1 % (12.1-15.1) 03/07/25 11:16 Plt Count 252 10^3/cmm (157-399) 03/07/25 11:16 MPV 8.6 fL (7.4-10.4) 03/07/25 11:16 Neut % (Auto) 64.3 % 03/07/25 11:16 Lymph % (Auto) 27.0 % 03/07/25 11:16 [place] % (Auto) 7.4 % 03/07/25 11:16 Eos % (Auto) 0.6 % 03/07/25 11:16 Baso % (Auto) 0.4 % 03/07/25 11:16 Neut # (Auto) 4.34 10^3/uL (1.8-7.7) 03/07/25 11:16 Lymph # (Auto) 1.8 10^3/uL (0.8-4.8) 03/07/25 11:16 [place] # (Auto) 0.5 10^3/uL (0.2-0.9) 03/07/25 11:16 Eos # (Auto) 0.0 10^3/uL (0.0-0.8) 03/07/25 11:16 Baso # (Auto) 0.0 10^3/uL (0.0-0.1) 03/07/25 11:16 Nucleated RBC % (auto) 0 % 03/07/25 11:16 Nucleated RBCs # 0.0 /100WBC 03/07/25 11:16 Sodium 138 mmol/L (136-145) 03/07/25 11:16 Potassium 4.2 mmol/L (3.5-5.1) 03/07/25 11:16 Chloride 103 mmol/L (98-107) 03/07/25 11:16 Carbon Dioxide 24 mmol/L (22-29) 03/07/25 11:16 Anion Gap 15.2 (5-19) 03/07/25 11:16 BUN 20 mg/dL (8-23) 03/07/25 11:16 Creatinine 0.6 mg/dL (0.5-0.9) 03/07/25 11:16 GFR Calculation 98.8 mL/min (90-130) 03/07/25 11:16 Glucose 93 mg/dL (65-115) 03/07/25 11:16 Calculated Osmolality 288 mOsm/kg (285-295) 03/07/25 11:16 Calcium 9.5 mg/dL (8.5-10.5) 03/07/25 11:16 Total Bilirubin 0.4 mg/dL (0.15-1.2) 03/07/25 11:16 AST 20 U/L (0-32) 03/07/25 11:16 ALT 26 U/L (0-33) 03/07/25 11:16 Alkaline Phosphatase 87 U/L (35-105) 03/07/25 11:16 Total Protein 7.6 g/dL (6.6-8.7) 03/07/25 11:16 Albumin 4.3 g/dL (3.5-5.2) 03/07/25 11:16 Globulin 3.3 g/dL (1.3-4.6) 03/07/25 11:16 Lipase 51 U/L (13-60) 03/07/25 11:16 Urine Color Yellow (Yellow) 03/07/25 11:55 Urine Appearance Clear (CLEAR) 03/07/25 11:55 Urine pH 6.5 (5-7) 03/07/25 11:55 Ur Specific [place] 1.015 (1.005-1.030) 03/07/25 11:55 Urine Protein Neg (Negative) 03/07/25 11:55 Urine Glucose (UA) Norm (Normal) 03/07/25 11:55 Urine Ketones 1+ (Negative) H 03/07/25 11:55 Urine Blood Neg (Negative) 03/07/25 11:55 Urine Nitrate Negative (Negative) 03/07/25 11:55 Urine Bilirubin Neg (Negative) 03/07/25 11:55 Urine Urobilinogen Norm mg/dL (Negative) 03/07/25 11:55 Ur Leukocyte Esterase 2+ (Negative) H 03/07/25 11:55 Urine RBC None /hpf (0-2) 03/07/25 11:55 Urine WBC 15-25 /hpf (0-5) H 03/07/25 11:55 Ur Squamous Epith Cells 0-4 /hpf (0-5) H 03/07/25 11:55 Amorphous Sediment Not Reportable 03/07/25 11:55 Urine Bacteria 1+ /hpf (NONE) H 03/07/25 11:55 Hyaline Casts 5-10 /lpf H 03/07/25 11:55 Urine Mucus 1+ /hpf 03/07/25 11:55 All radiology interpretation(s) finalized by discharge Discharge Plan Discharge Patient Disposition: Home Clinical Impression: Cystitis Condition: Stable Prescriptions: New cephalexin 500 mg capsule 500 mg PO TID 7 Days Qty: 21 0RF No Action omega-3 fatty acids [Fish Oil Concentrate] 1,000 mg capsule 1,000 mg PO BID Qty: 90 2RF Probiotic Digestive Care 20 billion cell capsule See Rx Instructions PO .2 times day Qty: 60 0RF Rx Instructions: 20 billion cell PO .2 times day; (DME) FreeStyle Lite Strips Strip See Rx Instructions .Route Qty: 100 5RF Rx Instructions: one day albuterol sulfate [Ventolin HFA] 90 mcg/actuation HFA aerosol inhaler 2 puff inhalation Q6H PRN (Reason: shortness of breath or wheezing) Qty: 8.5 1RF fluticasone propionate 100 mcg/actuation blister with device 1 inh inhalation Q12H Qty: 180 1RF magnesium gluconate 27 mg magnesium (500 mg) tablet PO multivit with min-folic acid [Vitafusion Women's Multi] 120 mcg tablet,chewable 1 tab PO DAILY polyethylene glycol 3350 [Miralax] 17 gram/dose powder PO magnesium L-threonate 48 mg magnesium (667 mg) capsule PO simethicone [Gas Relief Extra Strength] 125 mg capsule 125 mg PO BID FiberWell 2.5 gram tablet,chewable PO duloxetine 20 mg capsule,delayed release(DR/EC) 20 mg PO BID Qty: 60 0RF amitriptyline 10 mg tablet 20 mg PO BID Qty: 360 1RF cyclobenzaprine 5 mg tablet 5 mg PO .at bedtime Qty: 90 1RF famotidine 20 mg tablet 20 mg PO BID Qty: 180 1RF rosuvastatin [Crestor] 10 mg tablet 10 mg PO DAILY Qty: 90 1RF valacyclovir 500 mg tablet 500 mg PO DAILY Qty: 90 1RF (DME) blood-glucose meter [FreeStyle Lite Meter] Kit See Rx Instructions .Route Qty: 1 0RF Rx Instructions: As directed Discharge Orders: Discharge ED (Routine); Ordered 03/07/25 Ordered By: Tyrel Harrell Referrals: Marleen Rocha, MARCELLUS [Primary Care Provider, Family Practice] Discharge Diet: Usual diet Discharge Activity: Increase activity as tolerated Patient Instructions: Opioid Safety, Pain Management, Patient Portal & [place] Instructions Activity Restrictions/Additional Instructions: Thank you for choosing [facility] for your healthcare needs today. It is very important that you follow up as instructed or that you return to the Emergency Department should you have concerns or if your condition changes or worsens in any way. Emergency department visits are focused on emergent conditions, in some cases you may require further evaluation on an outpatient basis. You are seen the emergency room with complaint of abdominal pain. Your white count your liver enzymes kidney functions and electrolytes were normal. There is no evidence of acute gallbladder disease. Preliminary read of your gallbladder ultrasound showed no stones or thickening of the gallbladder wall. Will discharge you home with oral antibiotics for the bladder infection. (Please note that included in your discharge packet is information concerning opioid safety and pain management. This information is given to all patients were discharged from the ER regardless of their discharge diagnosis or the medicines they usually take or are prescribed.) Print Language: Bulgarian Coding Level of Care Code ED Bank Boss for Nancy Mercer
[2025-03-07 11:38] LABS: Alanine Aminotransferase 26 U/L (0-33); Albumin Level 4.3 g/dL (3.5-5.2); Alkaline Phosphatase 87 U/L (35-105); Anion Gap 15.2 (5-19); Aspartate Amino Transferase 20 U/L (0-32); Blood Urea Nitrogen 20 mg/dL (8-23); Calcium 9.5 mg/dL (8.5-10.5); Carbon Dioxide 24 mmol/L (22-29); Chloride 103 mmol/L (98-107); Creatinine Clr Calc Pharmacy 60.8912; Globulin 3.3 g/dL (1.3-4.6); Glucose 93 mg/dL (65-115); Lipase 51 U/L (13-60); Osmolality Calculated 288 mOsm/kg (285-295); Potassium 4.2 mmol/L (3.5-5.1); Sodium 138 mmol/L (136-145); Total Protein 7.6 g/dL (6.6-8.7)
[2025-03-07 12:10] LABS: Add Urine Microscopic? YES; Glucose Urine UA Norm (Normal); Nitrate Urine Negative (Negative); Specific Gravity, Urine 1.015 (1.005-1.030)
== END 2025-03-07 12:47 | disposition home or self-care (01) ==
PROVIDERS: Emergency Provider Family Medicine; PCP Nurse Practitioner
DX: N30.90 Cystitis, unspecified without hematuria (principal)
CPT/HCPCS: 76705; 80053; 81001; 83690; 85025; 87086; 99284

== ENCOUNTER → 2025-05-12 11:27 | Outpatient (BNVA) | payer MEDICARE, OTHER, SELFPAY | PROVIDERS: PCP Nurse Practitioner; Visit Provider Dermatology | DX: L72.0 Epidermal cyst (principal); D18.01 Hemangioma of skin and subcutaneous tissue; L98.8 Other specified disorders of the skin and subcutaneous tissue; Z08 Encounter for follow-up examination after completed treatment for malignant neoplasm; Z85.828 Personal history of other malignant neoplasm of skin; L82.0 Inflamed seborrheic keratosis; L53.8 Other specified erythematous conditions; R20.8 Other disturbances of skin sensation; L29.89 Other pruritus | CPT/HCPCS: 17110; 99203 ==